=== PATIENT | female | born 1970 | race African-American/Black ===

== ENCOUNTER 2022-12-28 11:30 | Day surgery (SDC) | payer OTHER, MEDICAID ==
[2022-12-27 15:25] VITALS: BMI 38.9
[2022-12-28] MEDS ORDERED: PROPOFOL 200 MG/20 ML VIAL ONE (12:57)
[2022-12-28] MEDS ORDERED: Lidocaine 1% PF 5 ML VIAL ONE (12:57)
== END 2022-12-28 14:25 | disposition home or self-care (01) ==
LOC: SDC 11:30
PROVIDERS: ATTEND Internal Medicine Gastroenterology
PROC: 0D727ZZ Dilation of Middle Esophagus, Via Natural or Artificial Opening (ICD-10-PCS; principal; 2022-12-28)
PROC: 0D717ZZ Dilation of Upper Esophagus, Via Natural or Artificial Opening (ICD-10-PCS; 2022-12-28)
PROC: 0DB78ZX Excision of Stomach, Pylorus, Via Natural or Artificial Opening Endoscopic, Diagnostic (ICD-10-PCS; 2022-12-28)
DX: K20.91 Esophagitis, unspecified with bleeding (principal); K21.9 Gastro-esophageal reflux disease without esophagitis; K44.9 Diaphragmatic hernia without obstruction or gangrene; R13.10 Dysphagia, unspecified; M19.90 Unspecified osteoarthritis, unspecified site; J45.909 Unspecified asthma, uncomplicated; E78.00 Pure hypercholesterolemia, unspecified; I10 Essential (primary) hypertension; E11.9 Type 2 diabetes mellitus without complications; M79.7 Fibromyalgia; R63.4 Abnormal weight loss; Z68.39 Body mass index [BMI] 39.0-39.9, adult; Z79.899 Other long term (current) drug therapy; Z91.040 Latex allergy status; Z98.84 Bariatric surgery status
CPT/HCPCS: 88305; J2704

== ENCOUNTER 2023-01-11 11:19 | Outpatient (CLI) | payer OTHER | END 2023-01-11 11:20 | disposition home or self-care (01) | LOC: CT 11:19 | PROVIDERS: ATTEND Internal Medicine Gastroenterology | DX: R11.10 Vomiting, unspecified (principal); R63.4 Abnormal weight loss; K44.9 Diaphragmatic hernia without obstruction or gangrene; K92.0 Hematemesis; Z98.84 Bariatric surgery status; D73.4 Cyst of spleen; D35.01 Benign neoplasm of right adrenal gland; R91.1 Solitary pulmonary nodule; Z90.49 Acquired absence of other specified parts of digestive tract | CPT/HCPCS: 74160 ==

== ENCOUNTER 2023-04-24 13:51 | Outpatient (CLI) | payer OTHER, MEDICAID ==
[~2023-04-24 13:51] MED LIST: GASTROGRAFIN 30 ML BOT ONE; Iopamidol 370 76% 100 ML VIAL ONE
== END 2023-04-24 13:52 | disposition home or self-care (01) ==
LOC: CT 13:51
PROVIDERS: ATTEND Surgery
DX: R10.13 Epigastric pain (principal); D73.4 Cyst of spleen
CPT/HCPCS: 74177; Q9963; Q9967

== ENCOUNTER 2023-05-10 08:34 | Observation (INO) | payer OTHER, MEDICAID ==
[2023-05-04 13:12] VITALS: BMI 35.9
[2023-05-04 13:43] LABS: #Basophils 0.1 10x3/uL (0.0-0.2); #Eosinphils 0.2 10x3/uL (0.0-0.5); #Monocytes 0.4 10x3/uL (0.0-1.1); %Basophils 1.3 % (0.0-2.0); %Eosinophils 1.8 % (0.0-6.0); %Lymphocytes 44.7 % (18.0-47.0); %Monocytes 4.2 % (0.0-10.0); %Neutrophils 47.8 % (40.0-75.0); Hemoglobin 11.7 g/dL (12.0-15.5); Mean Corpuscular Volume 80.1 fl (81.6-98.3); Mean Platelet Volume 11.7 fl (7.4-10.4); Platelet Count 408 10x3/uL (150-450); RBC Distribution Width 16.7 % (11.5-14.5); Red Blood Cell (RBC) Count 4.87 10x6/uL (3.90-5.03); White Blood Cell (WBC) Count 8.3 10x3/uL (3.5-10.5)
[2023-05-04 14:09] LABS: Anion Gap 16 mmol/L (10-20); BUN (Urea Nitrogen) 17 mg/dL (9.8-20.1); Calc. Creatinine Clearance 0 mL/min (70-130); Calcium 9.7 mg/dL (7.8-10.44); Carbon Dioxide 26 mmol/L (22-29); Chloride 105 mmol/L (98-107); Estimated GFR 76; Glucose 91 mg/dL (70-105); Potassium 3.6 mmol/L (3.5-5.1); Sodium 143 mmol/L (136-145)
[2023-05-10] MEDS ORDERED: Bupivacaine PF 0.5% 30 ML VIAL ONE (10:42)
[2023-05-10] MEDS ORDERED: Lidocaine 1% (PF) 30 ML VIAL ONE (10:42)
[2023-05-10] MEDS ORDERED: fentaNYL 50 mcg/mL 1 mL Vial ONE (10:42)
[2023-05-10] MEDS ORDERED: Midazolam HCl 2 mg/2 ml Vial ONE (10:42)
[2023-05-10] MEDS ORDERED: Scopolamine 1.5 mg/72 hour Patch ONE (11:44)
[2023-05-10] MEDS ORDERED: SUGAMMADEX SODIUM 200 MG/2 ML VIAL ONE (12:29)
[2023-05-10] MEDS ORDERED: fentaNYL PF 100 MCG/2 ML SYRINGE ONE (12:29)
[2023-05-10] MEDS ORDERED: Bupivacaine 0.25% HCL 30 ML VIAL ONE (12:49)
[2023-05-10] MEDS ORDERED: Lidocaine 2% PF 5 ML VIAL ONE ×2 (12:49→12:50)
[2023-05-10] MEDS ORDERED: EPINEPHrine 1 MG/ML AMP ONE (12:49)
[2023-05-10] MEDS ORDERED: Propofol 500 MG/50 ML VIAL ONE (12:53)
[2023-05-10] MEDS ORDERED: Sodium Chloride 0.9% 100 ML ONE (13:03)
[2023-05-10] MEDS ORDERED: CEFAZOLIN 2 GM VIAL ONE (13:03)
[2023-05-10] MEDS ORDERED: Albuterol HFA (OR) 200 PUFF INH ONE (13:17)
[2023-05-10] MEDS ORDERED: ePHEDrine Sulfate 50 MG/10 ML VIAL ONE (13:17)
[2023-05-10] MEDS ORDERED: Lidocaine 1% PF 5 ML VIAL ONE (13:17)
[2023-05-10] MEDS ORDERED: Dexamethasone 20 MG/5 ML VIAL ONE (13:17)
[2023-05-10] MEDS ORDERED: PROPOFOL 200 MG/20 ML VIAL ONE (13:17)
[2023-05-10] MEDS ORDERED: Glycopyrrolate 0.2 MG/ML 5 ML SYRINGE ONE (13:17)
[2023-05-10] MEDS ORDERED: NEOSTIGMINE 3 MG/3 ML SYR 3 MG/3 ML SYRINGE ONE (13:17)
[2023-05-10] MEDS ORDERED: Rocuronium Bromide 10 MG/ML (10ML VIAL) ONE (13:17)
[2023-05-10] MEDS ORDERED: Glucagon 1 MG/ML KIT IM PRN (15:24)
[2023-05-10] MEDS ORDERED: Dextrose 50% Abboject 50 ML SYRINGE SLOW IVP PRN (15:24)
[2023-05-10] MEDS ORDERED: Promethazine HCl 25 MG/ML VIAL IM PRN ×2 (15:24→16:19)
[2023-05-10] MEDS ORDERED: Dextrose 5% in Water 1,000 ML IV PRN (15:24)
[2023-05-10] MEDS ORDERED: Ipratropium/Albuterol 3 ML NEB NEB PRN (15:24)
[2023-05-10] MEDS ORDERED: hydrALAZINE 20 MG/ML VIAL SLOW IVP PRN (15:24)
[2023-05-10] MEDS ORDERED: Fentanyl 250 MCG/5 ML VIAL ONE (15:33)
[2023-05-10] MEDS ORDERED: D5 1/2 NS w/20 mEq KCL 1,000 ML ONE (15:33)
[2023-05-10] MEDS: D5 1/2 NS w/20 mEq KCL 1,000 ML IV SCH (15:47)
[2023-05-10] MEDS ORDERED: Ondansetron HCl/PF 4 MG/2 ML Vial IVP PRN (16:19)
[2023-05-10] MEDS ORDERED: Transdermal Patch Removal TOP SCH ×2 (16:30→21:00)
[2023-05-10] MEDS ORDERED: HYDROmorphone 0.5 MG/0.5 ML SYRINGE ONE (16:50)
[2023-05-10] MEDS: Gabapentin 300 MG CAP PO SCH (20:30)
[2023-05-10] MEDS: ALPRAZolam 0.5 MG TAB PO PRN (20:31)
[2023-05-10] MEDS: Morphine 4 MG/ML VIAL SLOW IVP PRN (20:32)
[2023-05-10] MEDS: Ondansetron PF 4 MG/2 ML Vial IVP PRN (20:46)
[2023-05-11] MEDS: Morphine 4 MG/ML VIAL SLOW IVP PRN ×4 (00:11→21:39)
[2023-05-11] MEDS: D5 1/2 NS w/20 mEq KCL 1,000 ML IV SCH (00:11)
[2023-05-11] MEDS: Ondansetron PF 4 MG/2 ML Vial IVP PRN ×3 (06:06→18:05)
[2023-05-11] MEDS: ALPRAZolam 0.5 MG TAB PO PRN (06:07)
[2023-05-11 07:53] LABS: #Eosinphils 0.2 thou/uL (0.0-0.7); #Monocytes 0.6 thou/uL (0.11-0.59); #Neutrophils 7.2 thou/uL (1.40-6.50); %Basophils 0.4 % (0.0-1.0); %Eosinophils 1.7 % (0.0-10.0); %Lymphocytes 21.7 % (21.0-51.0); %Monocytes 5.8 % (0.0-10.0); %Neutrophils 70.1 % (42.0-75.0); Hematocrit 31.9 % (36.0-47.0); Hemoglobin 9.5 g/dL (12.0-16.0); Mean Corpuscular HGB CONC 29.8 g/dL (32.0-36.0); Mean Corpuscular Hemoglobin 24.5 pg (27.0-31.0); Mean Corpuscular Volume 82.4 fl (78.0-98.0); Mean Platelet Volume 11.8 fL (7.4-10.4); Platelet Count 320 10x3/uL (130-400); RBC Distribution Width 16.9 % (11.5-14.5); Red Blood Cell (RBC) Count 3.87 mill/uL (4.20-5.40); White Blood Cell (WBC) Count 10.3 10x3/uL (4.8-10.8)
[2023-05-11 08:12] LABS: Anion Gap 10 mmol/L (10-20); BUN (Urea Nitrogen) 7 mg/dL (9.8-20.1); Calc. Creatinine Clearance 139 mL/min (70-130); Calcium 8.7 mg/dL (7.8-10.44); Carbon Dioxide 25 mmol/L (22-29); Chloride 106 mmol/L (98-107); Estimated GFR 104; Glucose 160 mg/dL (70-105); Potassium 3.8 mmol/L (3.5-5.1); Sodium 137 mmol/L (136-145)
[2023-05-11] MEDS: Lidocaine 4% Patch TD SCH (09:04)
[2023-05-11] MEDS: HYDROcodone/Acetaminophen 10/325 mg Tablet PO PRN ×3 (09:06→18:11)
[2023-05-11] MEDS: Gabapentin 300 MG CAP PO SCH ×3 (09:06→20:29)
[2023-05-11] MEDS: Pantoprazole 40 MG VIAL IVP SCH (09:07)
[2023-05-12] MEDS: HYDROcodone/Acetaminophen 10/325 mg Tablet PO PRN ×2 (05:22→13:24)
[2023-05-12] MEDS: Ondansetron PF 4 MG/2 ML Vial IVP PRN ×2 (05:26→14:53)
[2023-05-12] MEDS: Lidocaine 4% Patch TD SCH (09:06)
[2023-05-12] MEDS: Gabapentin 300 MG CAP PO SCH ×2 (09:07→14:53)
[2023-05-12] MEDS: Pantoprazole 40 MG VIAL IVP SCH (09:10)
[2023-05-12 12:36] VITALS: BP 158/106; TEMP 98.4
[2023-05-12] MEDS: ALPRAZolam 0.5 MG TAB PO PRN (14:55)
== END 2023-05-12 15:20 | disposition home or self-care (01) ==
LOC: INTOOBSV 09:04 → SURG A 09:04 → EDSTATUS 16:13 → SURG B 18:11
PROVIDERS: ADMIT Surgery; ATTEND Surgery
PROC: 07BP4ZZ Excision of Spleen, Percutaneous Endoscopic Approach (ICD-10-PCS; principal; 2023-05-10)
DX: D73.4 Cyst of spleen (principal); K21.9 Gastro-esophageal reflux disease without esophagitis; E66.01 Morbid (severe) obesity due to excess calories; I10 Essential (primary) hypertension; Z90.89 Acquired absence of other organs; Z90.710 Acquired absence of both cervix and uterus; Z90.49 Acquired absence of other specified parts of digestive tract; Z79.899 Other long term (current) drug therapy; Z91.040 Latex allergy status
CPT/HCPCS: 38120; 80048 ×2; 82962 ×2; 85025 ×2; 86850; 86900; 86901; C1889; J3010; 36415; 36416; 88304; 88312; C9113; J0171; J1100; J1170; J2001; J2250; J2270; J2405; J2550; J2704; J3480; J3490; S0020